=== PATIENT | male | born 1955 | race Caucasian/White ===

== ENCOUNTER 2017-01-24 18:53 | Inpatient (IN) ==
--- NOTE | 2017-01-24 19:07 | Emergency Department Note ---
Disposition Clinical Impression: Chest pain Qualifiers: Chest pain type: unspecified Qualified Code(s): R07.9 - Chest pain, unspecified Disposition: Admitted As Inpatient Condition: Good [facility]: [facility]Primary Care Provider[facility] - Forms: ED Satisfaction Letter Chest Pain HPI - General Chief Complaint: ED Chest Pain Stated Complaint: CP/[place] Time Seen by Provider: 01/24/17 19:02 Source: patient Mode of arrival: EMS Limitations: no limitations Vital Signs Reviewed: Yes Nursing Notes Reviewed: Yes - History of Present Illness HPI Narrative: 61-year-old male prior history of NC, CABG, hyperlipidemia, tobacco abuse who presents to the ER via EMS with a chief complaint of chest pain. Patient reports that he went to the [facility] today after chest pain that started around 1 PM unprovoked. He describes left-sided sharp chest pain as well as associated lightheadedness and nausea. He actually states that he has had symptoms intermittently for the last month. He was prompted to be seen during this time but he elected to forego evaluation. He states he last had a cardiac workup roughly 4 years ago. He takes aspirin daily. No history of DVT or PE. Patient was given 324 of aspirin prior to arrival. He presents to the ER chest pain free and otherwise asymptomatic. Pt complaint: chest pain Onset (ago): hour(s) Duration: intermittent Onset: during rest Pain Location: left chest Severity: moderate Quality: sharp Pain Radiation: none Improves with: nothing Worsens with: nothing Associated symptoms: Reports: nausea, dyspnea. Denies: vomiting, diaphoresis, syncope Treatments prior to arrival chest pain: aspirin - Related Data On Oral Contraceptives: No Home Medications Medication Instructions Recorded Confirmed Aspirin Enteric Coated [Aspirin EC] 162 mg PO BID 01/24/17 01/24/17 Carvedilol [Coreg] 6.25 mg PO BIDWM 01/24/17 01/24/17 Lisinopril [Zestril] 10 mg PO QPM 01/24/17 01/24/17 Allergies Allergy/AdvReac Type Severity Reaction Status Date / Time No Known Allergies Allergy Verified 01/24/17 18:54 All systems ED: reviewed and negative except as stated. Constitutional: Denies: fever Cardiovascular: Reports: chest pain. Denies: palpitations, dyspnea on exertion Respiratory: Denies: cough, dyspnea Gastrointestinal: Reports: nausea. Denies: abdominal pain, vomiting, diarrhea Musculoskeletal: Denies: back pain, neck pain Chest Pain PMH - Past Medical History Medical history: Reports: hyperlipidemia, myocardial infarction Surgical history: Reports: coronary bypass (CABG) - Social History Smoking Status: Current every day smoker Physical Exam - General Limitations: no limitations General appearance: alert, in no apparent distress - Head Head exam: atraumatic, normocephalic, normal inspection - Eye Eye exam: Present: normal appearance, EOMI - ENT ENT exam: normal exam - Neck Neck exam: Present: normal inspection, full ROM - Chest Chest inspection: Present: normal inspection, symmetric chest wall rise - Respiratory Respiratory exam: Present: normal lung sounds bilaterally - Cardiovascular Cardiovascular exam: Present: regular rate, normal rhythm, normal heart sounds - Abdominal Exam Abdominal exam: Present: soft, Non-Tender. Absent: tenderness - Extremities Exam Extremities exam: Present: normal inspection, full ROM - Expanded Upper Extremity Exam Shoulder exam: Present: normal inspection, full ROM Arm exam: Present: normal inspection, full ROM Elbow exam: Present: normal inspection, full ROM Forearm/Wrist exam: Present: normal inspection, full ROM Hand exam: Present: normal inspection, full ROM Vascular exam: Normal: radial pulse - Expanded Lower Extremity Exam Hip/Pelvis exam: Present: normal inspection, full ROM Upper leg exam: Present: normal inspection, full ROM Knee exam: Present: normal inspection, full ROM Lower leg exam: Present: normal inspection, full ROM Ankle exam: Present: normal inspection, full ROM Foot/toe exam: Present: normal inspection, full ROM Neurovascular/Tendon exam: Absent: motor deficit, sensory deficit - Neurological Exam Neurological exam: Present: alert, other (GCS 15, Nonfocal neurologic exam) - Psychiatric Psychiatric exam: Present: normal affect, normal mood - Skin Skin exam: Present: warm, dry, intact, normal color Course Course Narrative: Patient seen and examined. Vital signs reviewed. He is currently asymptomatic. We will obtain an EKG, chest x-ray as well as labs including troponin and BNP. Patient received aspirin prior to arrival. He is in agreement with staying in the hospital for further evaluation. Vital Signs Temperature 97.8 F 01/24/17 18:57 Pulse Rate 65 01/24/17 18:57 Respiratory Rate 18 01/24/17 18:57 Blood Pressure 170/108 01/24/17 18:57 O2 Sat by Pulse Oximetry 99 01/24/17 18:57 Temperature 97.8 F 01/24/17 18:57 Pulse Rate 65 01/24/17 18:57 Respiratory Rate 18 01/24/17 18:57 Blood Pressure 170/108 01/24/17 18:57 O2 Sat by Pulse Oximetry 99 01/24/17 18:57 Oxygen Delivery Oxygen Delivery Room Air Chest Pain - MDM Narrative Medical decision making narrative: 61-year-old male presents to the ER due to chest pain. Symptoms had resolved prior to arrival. Has been having intermittent pain and dizziness for the last month. Prior history of CABG and NC. No recent cardiac workup. EKG is nonischemic. Chest x-ray unremarkable. Troponin negative at first draw. Patient given aspirin prior to arrival. Admitted to the hospitalist service. - Medical Records Medical records reviewed: Yes I reviewed the patient's medical records. - Lab Data Lab results reviewed: Yes I reviewed the patient's lab results. Result diagrams: 01/24/17 19:25 01/24/17 19:25 Lab Results 01/24/17 01/24/17 01/24/17 Range/Units 19:25 19:25 19:25 WBC 10.1 (4.3-11.1) K/mcL RBC 5.03 (4.19-5.50) M/mcL Hgb 15.2 (12.9-16.9) g/dL Hct 47.3 (37.5-50.1) % MCV 94.0 (83.0-100.0) fL MCH 30.2 (28.0-33.3) pg MCHC 32.1 (31.6-35.5) g/dL RDW 13.3 (11.5-14.5) % Plt Count 269 (140-400) K/mcL MPV 9.0 L (9.4-12.4) fL Immature Gran % 0.3 (0-4) % Seg Neutrophils % 60.5 % Lymphocytes % 31.3 % Monocytes % 6.1 % Eosinophils % 1.6 % Basophils % 0.2 % Neutrophils # 6.1 (1.6-8.9) K/mcL Lymphocytes # 3.2 (0.6-4.6) K/mcL Monocytes # 0.6 (0.0-1.3) K/mcL Eosinophils # 0.2 (0.0-0.6) K/mcL Basophils # 0.0 (0.0-0.2) K/mcL Sodium 143 (136-145) mEq/L Potassium 4.8 H (3.5-4.5) mEq/L Chloride 106 (98-109) mEq/L Carbon Dioxide 29 (19-29) mEq/L BUN 11 (8-26) mg/dL Creatinine 0.88 (0.72-1.25) mg/dL Est GFR ( Amer) > 60 (> 60) Est GFR (Non-Af Amer) > 60 (> 60) BUN/Creatinine Ratio 13 (6-26) Glucose 88 (70-99) mg/dL Calculated Osmolality 295 (280-300) Calcium 9.7 (8.6-10.8) mg/dL Troponin I (0-0.03) ng/mL B-Natriuretic Peptide 136 H (0-100) pg/mL 01/24/17 Range/Units 19:25 WBC (4.3-11.1) K/mcL RBC (4.19-5.50) M/mcL Hgb (12.9-16.9) g/dL Hct (37.5-50.1) % MCV (83.0-100.0) fL MCH (28.0-33.3) pg MCHC (31.6-35.5) g/dL RDW (11.5-14.5) % Plt Count (140-400) K/mcL MPV (9.4-12.4) fL Immature Gran % (0-4) % Seg Neutrophils % % Lymphocytes % % Monocytes % % Eosinophils % % Basophils % % Neutrophils # (1.6-8.9) K/mcL Lymphocytes # (0.6-4.6) K/mcL Monocytes # (0.0-1.3) K/mcL Eosinophils # (0.0-0.6) K/mcL Basophils # (0.0-0.2) K/mcL Sodium (136-145) mEq/L Potassium (3.5-4.5) mEq/L Chloride (98-109) mEq/L Carbon Dioxide (19-29) mEq/L BUN (8-26) mg/dL Creatinine (0.72-1.25) mg/dL Est GFR ( Amer) (> 60) Est GFR (Non-Af Amer) (> 60) BUN/Creatinine Ratio (6-26) Glucose (70-99) mg/dL Calculated Osmolality (280-300) Calcium (8.6-10.8) mg/dL Troponin I 0.01 (0-0.03) ng/mL B-Natriuretic Peptide (0-100) pg/mL - Radiology Data Radiology results reviewed: Yes I reviewed the patient's radiology results. Chest X-Ray 01/24/17 19:05 IMPRESSION: No evidence of acute disease. D/ / Jose Escamilla MD / Jose Escamilla MD Interpreting Provider: Jose Escamilla MD - EKG Data EKG attestation: Yes I reviewed and interpreted this EKG. EKG results narrative: EKG demonstrates sinus bradycardia with a rate of 54 bpm. Normal axis. Prolonged QRS duration of 135. Other intervals normal. T-wave inversions in lead 3. Nonspecific ST-T wave changes in the lateral leads. No gross ST elevations or depressions. No acute ischemic findings. Heart Score - Score History: Moderately Suspicious EKG: Normal Age: 45-65 Risk Factors: Equal/Greater than 3 risk factor or history of atherosclerotic disease Troponin: Less than normal limit HEART Score Total: 4 S.B.A.R. - S.B.A.R. Situation: Demographics, MOA Background: Presenting Complaint, Relevant PMH, Meds, & Allergies Assessment: Vital Signs, Course and respsone to treatment, Exam Concerns, Patient/Family Expectation, Pertinant Lab Results, Outstanding Labs Recommendation: Barrier(s) to disposition, Recommendation based on pending studies, treatments, or consults S.B.A.R. Report Given to: Dr. Alfaro [email or web address].Maico Repor Time: 20:22 Attestation Statement - Attestation Attestation: I personally interviewed and examined this patient and my medical decision- making was reviewed with the Resident Physician, Dr. Field. I agree with the documented findings, disposition and treatment plan as described except to the extent set forth below. Patient is a 61-year-old white male who presents to the emergency department sent from the [place] for evaluation of chest pain. Patient had a prior NC with CABG apparently 4 years ago, hyperlipidemia, high cholesterol and hypertension. Patient states that about the past month he has been having intermittent episodes of orthostatic hypotension with lightheadedness. Patient has not fallen, denies any syncopal episodes but states that these are becoming more frequent and more severe. Today around noon he was sitting in a chair at rest and began having sharp left-sided chest discomfort which lasted for approximately 30 minutes. Patient had no shortness of breath with this no diaphoresis no nausea or vomiting no radiation of pain into his shoulder neck or jaw no radiation into the back. He was not having any abdominal pain or back pain at the time. Patient states he takes 2 baby aspirin in the morning and 2 at night he did take his morning aspirin and then was given aspirin in route to the ED today. Patient currently is resting comfortably and is asymptomatic he denies any chest pain pressure or heaviness at this time no symptoms but is concerned because neither very similar to symptoms he had when he required emergent CABG 4 years ago. Patient has not followed up with a nutrition services aide since his surgery. I agree with patient's physical exam findings as documented. Patient was on a cardiac cath rn continuous pulse ox EKG was obtained which was a sinus rhythm with no acute ischemic changes and this was compared to his prior EKG and is unchanged. Abs were drawn and sent a portal chest x-ray was obtained. Patient's labs and x -ray are unremarkable. Due to his significant history and concerning symptoms we feel he would benefit from admission and cardiology consult. Patient is pain -free at this time will admit the patient and discussed with the hospitalist for further evaluation and management. Patient is in agreement with this plan.
[2017-01-24 19:32] LABS: Basophils % 0.2 %; Eosinophils # 0.2 K/mcL (0.0-0.6); Eosinophils % 1.6 %; Hematocrit 47.3 % (37.5-50.1); Hemoglobin 15.2 g/dL (12.9-16.9); Immature Granulocytes % 0.3 % (0-4); Lymphocytes # 3.2 K/mcL (0.6-4.6); Lymphocytes % 31.3 %; Mean Corpuscular HGB Conc 32.1 g/dL (31.6-35.5); Mean Corpuscular Hemoglobin 30.2 pg (28.0-33.3); Monocytes # 0.6 K/mcL (0.0-1.3); Monocytes % 6.1 %; Neutrophils # 6.1 K/mcL (1.6-8.9); Platelet Count 269 K/mcL (140-400); Red Blood Count 5.03 M/mcL (4.19-5.50); Red Cell Distribution Width 13.3 % (11.5-14.5); Segmented Neutrophils % 60.5 %
[2017-01-24 19:45] LABS: BUN/Creatinine Ratio 13 (6-26); Blood Urea Nitrogen 11 mg/dL (8-26); Calcium 9.7 mg/dL (8.6-10.8); Carbon Dioxide 29 mEq/L (19-29); Chloride 106 mEq/L (98-109); Glucose 88 mg/dL (70-99); Osmolality,Calculated 295 (280-300); Potassium 4.8 mEq/L (3.5-4.5); Sodium 143 mEq/L (136-145); eGFR For African Americans > 60 (> 60); eGFR For Non-African Americans > 60 (> 60)
[2017-01-24] MEDS ORDERED: Acetaminophen 325 MG TABLET PO PRN (21:38)
[2017-01-24] MEDS ORDERED: Naloxone 0.4 MG/ML INJ IVP PRN (21:38)
--- NOTE | 2017-01-24 22:06 | Internal Med History&Physical ---
<Vesna Barraza M - Last Filed: 01/24/17 22:08> Date of Encounter: 01/24/17 Time of Encounter: 22:03 Assessment and Plan (1) Chest pain Current visit: Yes Status: Acute Patient presents with intermittent chest pain over the last several months. He has history of CAD and continues to smoke. EKG showed sinus bradycardia with no ischemic changes. Initial troponin negative at 0.01. 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 Serial troponins echocardiogram and stress test Hold morning coreg for stress test. Qualifiers: Chest pain type: precordial pain Qualified Code(s): R07.2 - Precordial pain (2) Near syncope Current visit: Yes Status: Acute Patient reports occasional episodes of near syncope over the last several months. He reports this happens whether he is at rest or active, though it is worse with activity. He has never lost consciousness. He does report that when he had his IN several years ago, his main symptom was syncope. EKG showed sinus bradycardia with HR 54, no acute ischemic changes. Troponin negative at 0.01. 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 (3) CAD (coronary artery disease) Current visit: Yes Status: Acute Patient with history of CAD s/p 2-vessel CABG. He has not had any cardiac work up since his surgery several years ago. He is having intermittent chest pain and near syncope and is being evaluated for that today. Continue aspirin, beta bharti and rambo inhibitor. Qualifiers: Coronary Disease-Associated Artery/Lesion type: [place] artery [place] vs. transplanted heart: [place] heart Associated angina: angina presence unspecified Qualified Code(s): I25.10 - Atherosclerotic heart disease of [place] coronary artery without angina pectoris (4) Smoker Current visit: Yes Status: Acute Patient continues to smoke 1-1.5 PPD despite CAD. Discussed smoking cessation and advised him to quit. Smoking cessation education ordered. (5) DVT prophylaxis Current visit: Yes Status: Acute anti-embolic stockings Lovenox daily Internal Medicine - H&P: HPI Chief complaint: chest pain Admitted From: Emergency Dept Plans for Post Hospital Care: Home History of present illness: Mr. Thompson is a 61 year old male with hypertension, hyperlipidemia, coronary artery disease status post 2 vessel CABG presents with complaints of chest pain and lightheadedness. Patient reports for the last several months has had intermittent lightheadedness, feeling like he is nearly going to pass out, but he does not. He also reports intermittent chest pain. This comes on suddenly, and does not seem to correspond with activity or rest. He reports his lightheadedness is worse with activity. Chest pain is on the left side of his chest, he describes it as an ache, he states it usually lasts minutes to several hours and goes away. He also reports left arm pain and tingling, which he originally attributed to throwing his shoulder out. This pain is constant, not relieved by ibuprofen taken at home. He reports occasional nausea, not associated with this chest pain, which he attributes to indigestion. He denies headache, palpitations, shortness of breath, abdominal pain or diarrhea. He denies any fever, chills or sweats. Evaluation in the emergency department included EKG which showed sinus bradycardia with heart rate of 54, no acute ischemic changes. Troponin was negative at 0.01. BNP was 136. Chest x-ray showed no evidence of acute disease. Other labs are grossly normal. On exam, patient alert and oriented, in no acute distress. Heart had regular rhythm with bradycardic rate heart rate in the 50s. Lungs are clear bilaterally to auscultation. Peripheral pulses intact, no peripheral edema. Past Med Surg Social Fam HX - Past Medical History Medical history: coronary artery disease, hyperlipidemia, hypertension, myocardial infarction Psychiatric history: no psych history - Past Surgical History Surgical History: coronary bypass (CABG) - Social History Smoking Status: Current every day smoker (55 year pack history) Packs per day: 1-1.5 Smokeless Tobacco Status: No Alcohol use: none Drug use: none - Family History Mother Living Status: Age at : 72 Cause of : lung CA Hx Family Cardiac Disorders: Yes Hx Family Cancer: Yes Internal Medicine - H&P: Meds Aspirin Enteric Coated [Aspirin EC] 162 mg PO BID 01/24/17 [History] Carvedilol [Coreg] 6.25 mg PO BIDWM 01/24/17 [History] Lisinopril [Zestril] 10 mg PO QPM 01/24/17 [History] 3 Allergy/AdvReac Type Severity Reaction Status Date / Time No Known Allergies Allergy Verified 01/24/17 18:54 All Systems PM: A 10-system review of systems was performed and is negative for pertinent findings except as documented above in the HPI. - Constitutional Constitutional: no chills, no fever(s), no night sweats - EENT Eyes: no change in vision, no discharge, no pain, no photophobia Ears: no ear discharge, no ear pain, no tinnitus Nose, mouth and throat: no dysphagia, no nasal discharge, no neck pain, no sore throat - Cardiovascular Cardiovascular ROS IM: chest pain, lightheadedness, no diaphoresis, no dyspnea, no palpitations, no syncope - Respiratory Respiratory: no cough, no dyspnea, no wheezing, no excessive phlegm production - Gastrointestinal Gastrointestinal: no abdominal pain, no diarrhea, no hematemesis, no hematochezia, no melena, no nausea, no vomiting - Musculoskeletal Musculoskeletal ROS IM: no numbness, no tingling Additional comments: left arm pain - Integumentary Integumentary IM: no rash, no unusual bruising - Neurological Neurological ROS: no confusion, no convulsions, no focal weakness, no numbness, no tingling, no tremor(s) - Hematologic/Lymphatic Hematologic/Lymphatic: no easy bruising - Constitutional Vitals: Temp Pulse Resp BP Pulse Ox 98.2 F 51 16 147/92 97 01/24/17 21:16 01/24/17 21:16 01/24/17 21:16 01/24/17 21:16 01/24/17 21:16 General appearance: Present: A&O X 3, pleasant, no acute distress - Head Head exam: Present: atraumatic, normocephalic - Eye Eye exam: Present: PERRL, conjuntiva pink, sclera anicteric Pupils: Present: PERRL - Neck Neck exam general surgery: Present: supple, trachea midline. Absent: lymphadenopathy - Respiratory Respiratory exam: Present: CTAB. Absent: accessory muscle use, rales, rhonchi, wheezes - Cardiovascular Cardiovascular exam: Present: bradycardia, RRR, +S1, +S2. Absent: diastolic murmur, gallop, rubs, systolic murmur - GI/Abdominal GI/Abdominal exam: Present: normal bowel sounds, soft, no peritoneal signs. Absent: distended, tenderness - Extremities Exam Extremities exam: Present: warm, radial pulses palpable and symmetrical. Absent : calf tenderness, cyanotic, pedal edema - Neurological Exam Neurological exam: Present: CN II-XII intact, oriented X3, no focal deficits. Absent: facial droop, speech deficit - Skin Skin exam: Present: dry, intact Internal Med - H&P Results - Labs CBC & Chem 7: 01/24/17 19:25 01/24/17 19:25 Labs: All Lab Results (24 Hours) 01/24/17 01/24/17 01/24/17 Range/Units 19:25 19:25 19:25 WBC 10.1 (4.3-11.1) K/mcL RBC 5.03 (4.19-5.50) M/mcL Hgb 15.2 (12.9-16.9) g/dL Hct 47.3 (37.5-50.1) % MCV 94.0 (83.0-100.0) fL MCH 30.2 (28.0-33.3) pg MCHC 32.1 (31.6-35.5) g/dL RDW 13.3 (11.5-14.5) % Plt Count 269 (140-400) K/mcL MPV 9.0 L (9.4-12.4) fL Immature Gran % 0.3 (0-4) % Seg Neutrophils % 60.5 % Lymphocytes % 31.3 % Monocytes % 6.1 % Eosinophils % 1.6 % Basophils % 0.2 % Neutrophils # 6.1 (1.6-8.9) K/mcL Lymphocytes # 3.2 (0.6-4.6) K/mcL Monocytes # 0.6 (0.0-1.3) K/mcL Eosinophils # 0.2 (0.0-0.6) K/mcL Basophils # 0.0 (0.0-0.2) K/mcL Sodium 143 (136-145) mEq/L Potassium 4.8 H (3.5-4.5) mEq/L Chloride 106 (98-109) mEq/L Carbon Dioxide 29 (19-29) mEq/L BUN 11 (8-26) mg/dL Creatinine 0.88 (0.72-1.25) mg/dL Est GFR ( Amer) > 60 (> 60) Est GFR (Non-Af Amer) > 60 (> 60) BUN/Creatinine Ratio 13 (6-26) Glucose 88 (70-99) mg/dL Calculated Osmolality 295 (280-300) Calcium 9.7 (8.6-10.8) mg/dL Troponin I (0-0.03) ng/mL B-Natriuretic Peptide 136 H (0-100) pg/mL 01/24/17 Range/Units 19:25 WBC (4.3-11.1) K/mcL RBC (4.19-5.50) M/mcL Hgb (12.9-16.9) g/dL Hct (37.5-50.1) % MCV (83.0-100.0) fL MCH (28.0-33.3) pg MCHC (31.6-35.5) g/dL RDW (11.5-14.5) % Plt Count (140-400) K/mcL MPV (9.4-12.4) fL Immature Gran % (0-4) % Seg Neutrophils % % Lymphocytes % % Monocytes % % Eosinophils % % Basophils % % Neutrophils # (1.6-8.9) K/mcL Lymphocytes # (0.6-4.6) K/mcL Monocytes # (0.0-1.3) K/mcL Eosinophils # (0.0-0.6) K/mcL Basophils # (0.0-0.2) K/mcL Sodium (136-145) mEq/L Potassium (3.5-4.5) mEq/L Chloride (98-109) mEq/L Carbon Dioxide (19-29) mEq/L BUN (8-26) mg/dL Creatinine (0.72-1.25) mg/dL Est GFR ( Amer) (> 60) Est GFR (Non-Af Amer) (> 60) BUN/Creatinine Ratio (6-26) Glucose (70-99) mg/dL Calculated Osmolality (280-300) Calcium (8.6-10.8) mg/dL Troponin I 0.01 (0-0.03) ng/mL B-Natriuretic Peptide (0-100) pg/mL - Diagnostic Studies Chest x-ray Additional comments: Chest X-Ray 01/24/17 19:05 IMPRESSION: No evidence of acute disease. D/ / Jose Escamilla MD / Jose Escamilla MD Interpreting Provider: Jose Escamilla MD <Cary Alfaro - Last Filed: 01/25/17 05:07> Date of Encounter: 01/25/17 Internal Medicine - H&P: HPI History of present illness: Mr. Thompson is a 61 year old male All Systems PM: A 10-system review of systems was performed and is negative for pertinent findings except as documented above in the HPI. - Constitutional Vitals: Temp Pulse Resp BP Pulse Ox 98.1 F 52 16 110/75 98 01/25/17 04:25 01/25/17 04:25 01/25/17 04:25 01/25/17 04:25 01/25/17 04:25 Internal Med - H&P Results - Labs CBC & Chem 7: 01/25/17 01:30 01/25/17 01:30 Labs: Short CBC 01/25/17 Range/Units 01:30 WBC 10.6 (4.3-11.1) K/mcL Hgb 14.5 (12.9-16.9) g/dL Hct 43.7 (37.5-50.1) % Plt Count 247 (140-400) K/mcL Neutrophils # 6.8 (1.6-8.9) K/mcL BMP 01/25/17 01:30 Sodium 141 Potassium 4.0 Chloride 108 Carbon Dioxide 28 BUN 14 Creatinine 0.91 Glucose 88 Calcium 9.3 Cardiac Enzymes 01/25/17 Range/Units 01:30 Troponin I 0.02 (0-0.03) ng/mL - Attending Attestation I have seen and examined pt independently. I have discussed with B[employer]LE [employer] Ms. Barraza regarding the management plan. I have reviewed and agree with the documentation. Pt admitted for chest pain. Hx of CAD s/p CABG. Need to r/o ACS. Will cont cardiac monitoring. Track 3 sets of troponin. Echo and stress test.
[2017-01-25 01:45] LABS: Basophils % 0.2 %; Eosinophils # 0.2 K/mcL (0.0-0.6); Eosinophils % 1.6 %; Hematocrit 43.7 % (37.5-50.1); Hemoglobin 14.5 g/dL (12.9-16.9); Immature Granulocytes % 0.2 % (0-4); Lymphocytes # 2.9 K/mcL (0.6-4.6); Lymphocytes % 27.4 %; Mean Corpuscular HGB Conc 33.2 g/dL (31.6-35.5); Mean Corpuscular Volume 93.6 fL (83.0-100.0); Mean Platelet Volume 9.3 fL (9.4-12.4); Monocytes # 0.7 K/mcL (0.0-1.3); Monocytes % 6.4 %; Neutrophils # 6.8 K/mcL (1.6-8.9); Platelet Count 247 K/mcL (140-400); Red Blood Count 4.67 M/mcL (4.19-5.50); Red Cell Distribution Width 13.3 % (11.5-14.5); Segmented Neutrophils % 64.2 %
[2017-01-25 01:59] LABS: BUN/Creatinine Ratio 15 (6-26); Blood Urea Nitrogen 14 mg/dL (8-26); Calcium 9.3 mg/dL (8.6-10.8); Carbon Dioxide 28 mEq/L (19-29); Chloride 108 mEq/L (98-109); Chol/HDL Ratio 6.3 (0-4.9); Cholesterol 203 mg/dL (< 200); Glucose 88 mg/dL (70-99); HDL Cholesterol 32 mg/dL (40-59); LDL Cholesterol,Calculated 129 mg/dL (0-99); Osmolality,Calculated 292 (280-300); Sodium 141 mEq/L (136-145); Triglycerides 212 mg/dL (< 150); eGFR For African Americans > 60 (> 60); eGFR For Non-African Americans > 60 (> 60)
[2017-01-25] MEDS: *HR* Enoxaparin 40 MG/0.4 ML SYRINGE SQ SCH (05:07)
[2017-01-25] MEDS ORDERED: Regadenoson 0.4 MG/5 ML SYRINGE IVP ONE (05:49)
[2017-01-25] MEDS ORDERED: Aspirin Enteric Coated 81 MG Tablet PO SCH (09:00)
--- NOTE | 2017-01-25 10:17 | Nuclear Medicine Stress Report ---
Regadenoson Nuclear Stress Name: Candido Thompson Date of Study: 01/25/2017 Date: 1955 Ht: 72.0 in Medical Record#: [id number] Age: 61 Wt: 169.0 lb Gender: Male Order #: [id number] Location: [facility] Room: [facility] Supervising Provider: Catarino Garcia CNP Reading Physician: Wes Peralta DO, FAC, [facility] Ordering Physician: Joanne Hassan CNP Primary Care Physician: [facility] Stress Technologist: Miguel Angel Bonds, ADAM Harp Maker: Bogdan Monroe Indications: Chest Pain Impression: Pharmacologic stress ECG is non diagnostic for ischemia due to baseline ST-T changes and submaximal HR. Gated EF = 36%. The left ventricle is dilated. LVEDV = 196 mL. Large sized, moderate to severe intensity, fixed perfusion defects involving the mid to apical anterior, anteroseptal, and apex segments as well as the inferior and adjacent inferolateral/inferoseptal segments c/w a prior infarct. Minimal kelli-infarct ischemia involving the basal to mid inferoseptal segments. History: Hypertension Hypercholesteremia History of Smoking History of Coronary Artery Bypass Surgery Stress Test Summary: Stress Test Type: Pharmacologic Regadenoson 0.4mg/5ml given IV Baseline Information: Initial Heart Rate: 56 Blood Pressure: 118/74 Stress Information: Test Terminated Due to (primary): As per protocol Maximum Blood Pressure: 112/72 Maximum Heart Rate: 79 Percent Maximum Heart Rate Achieved: 49 Double Product: 8848 METS Reached: 1 Symptoms: No chest symptoms Nuclear Summary: SPECT myocardial perfusion imaging using Tc99m Sestamibi given intravenously was performed at rest and following cardiac stress testing. The resting images were obtained following initial dose of 11.7 mCi. Following stress an additional dose of 35.6 mCi was given at peak exercise or 30 seconds post regadenoson infusion. Medication Given: Time Medication Dose Units Route Findings: Stress Note * Resting ECG demonstrated normal sinus rhythm, ST-T changes. * No baseline arrhythmias were noted. * Pharmacologic stress ECG is non diagnostic for ischemia due to baseline ST-T changes and submaximal HR. * No arrhythmias were noted during stress. * Patient had no chest pain during stress. * Normal hemodynamic responses to pharmacologic stress. Study Quality * Study quality is average. Gated EF % * Gated EF = 36%. Left Ventricle * The left ventricle is dilated. * LVEDV = 196 mL. Inferior Perfusion Rest * Moderate to severe intensity defects involving mid to apical anterior, anteroseptal segments. Severe intensity defects involving the inferior and adjacent inferior lateral and inferior septal segments. Inferior Perfusion Stress * Moderate to severe intensity defects involving mid to apical anterior, anteroseptal segments. Severe intensity defects involving the inferior and adjacent inferior lateral and inferior septal segments. TID * No evidence of transient ischemic dilatation. TID ratio = 0.99. Lung Uptake * There is no evidence of increase lung uptake. Updated by Wes Peralta DO, FACScooter, MERE, JASON on 01/25/2017 10:07:47 AM electronically signed on 01/25/2017 10:10:43 AM with status of Final
--- NOTE | 2017-01-25 14:02 | Cardiology Consult Note ---
Date of Encounter: 01/25/17 Time of Encounter: 13:30 Assessment and Plan (1) Chest pain Current Visit: Yes Status: Acute Per cardiology: -Reports intermittent chest pain for the past several months. -Reports pain can occur at rest and with excertion. -Denies current chest pain. -ECG with sinus bradycardia, incomplete bundle branch block, t wave inverisions noted. Unknown baseline ECG. -On asa, statin, beta bharti. Beta bharti currently on hold due to bradycardia. -Troponins negative x3. -Echo with LVEF 35-40%, severely dilated left ventricle, mild diastolic dysfunction, moderately dilated left atrium, no significant valvular dysfunction , mid inferior, basal inferior, apical septal, mid inferior septal, and basal inferior septal ryan were akinetic, all other ryan hypokinetic. -Nuclear stress with Gated EF 36%, left ventricle is dilated, large sized moderate to severe intensity, fixed perfusion defects involving mid to apical anterior, anteroseptal, and apex segments as well as the inferior adjacent inferolateral/inferoseptal segments consistent with prior infarct. Minimal per- infarct ischemia involving basal to mid inferoseptal segments. -Per discussion with patient, findings on stress and echo new. Will obtain old records to compare. -PLan for LHC in am. Risks versus benefits of LHC explained to patient. Patient states understanding and agreeable for LHC. -Discussed medication complaints after LHC, if needs stent placement. Patient states he would be compliant with medications and would be compliant with cardiology follow up. -Will make NPO after midnight. -Further recommendations pending LHC. Qualifiers: Chest pain type: unspecified Qualified Code(s): R07.9 - Chest pain, unspecified (2) CAD (coronary artery disease) Current Visit: Yes Status: Chronic Per cardiology: -Known CAD with reported CABG x2 2010 at [facility]. -Reports atypical chest pain. -On asa, statin, beta bharti. -Reports is intermittnetly compliant with medications. -Echo and stress as above. -Plan for LHC in am. Qualifiers: Coronary Disease-Associated Artery/Lesion type: [place] artery [place] vs. transplanted heart: [place] heart Associated angina: angina presence unspecified Qualified Code(s): I25.10 - Atherosclerotic heart disease of [place] coronary artery without angina pectoris (3) Sinus bradycardia Current Visit: Yes Status: Acute Per cardiology: -Sinus bradycardia noted. -Unknown baseline ECG or HR. -Beta bharti currently on hold -Had dizziness on presentation, however not currently having dizziness. -Will continue to monitor. (4) Cardiomyopathy Current Visit: Yes Status: Acute Per cardiology: -LVEF 35-40%, unknown chronicity. -ON rambo inhibitor and beta blcoker (currently being held for bradycardia). -Euvolemic on exam. -Plan for [facility] in am. -Will obtain previous cardiac records. Qualifiers: Cardiomyopathy type: unspecified Qualified Code(s): I42.9 - Cardiomyopathy , unspecified (5) Hyperlipemia Current Visit: Yes Status: Acute Per cardiology: -Known hyperlipidemia. -ON statin. -Will change to atorvastatin. -Will check AST and ALT. Qualifiers: Hyperlipidemia type: mixed hyperlipidemia Qualified Code(s): E78.2 - Mixed hyperlipidemia (6) Tobacco abuse Current Visit: Yes Status: Acute Per cardiology: -Known tobacco abuse of 1-1.5 ppd for >40 years. -SMoking cessation education given to patient. Patietn states he does not plan on quitting. Discussion w patient/family: The assessment and plan as outlined above was discussed with the patient who expressed understanding and agreement. All questions were answered. Thank you for involving us in the care of your patient. Please call with any questions. Discussed and reviewed with . History of Present Illness Consult date: 01/25/17 Requesting physician: Meagan Cruz Consult reason: abnormal stress, EF 36%, chest pain Chief complaint: chest pain, dizziness History of present illness: Mr. Thompson is a 61 year old male with a relevant past medical history of HTN, hyperlipidemia, CAD s/p CABG x2 2010, tobacco abuse. Patient presented to [facility] for complaints of dizziness and left sided chest pain. Patient states dizziness is a new symptom for him. Patient states he has ahd intermittent chest pain for months. Patient states chest pain can occur at rest and with excertion. Patient denies aggravating or alleviating factors. Patient states pain radiates to left shoulder. Patient denies current chest pain. Patient denies shortness of breath or fatigue. Past Med Surg Social Fam HX - Past Medical History Attestation: Yes The following information was validated with the patient. Source: patient Medical history: coronary artery disease, hyperlipidemia, hypertension, myocardial infarction Psychiatric history: no psych history - Past Surgical History Surgical History: coronary bypass (CABG) - Social History Smoking Status: Current every day smoker (55 year pack history) Packs per day: 1-1.5 Smokeless Tobacco Status: No Alcohol use: none Drug use: none - Family History Mother Living Status: Age at : 72 Cause of : lung CA Hx Family Cardiac Disorders: Yes Hx Family Cancer: Yes Medications and Allergies Aspirin Enteric Coated [Aspirin EC] 162 mg PO BID 01/24/17 [History] Carvedilol [Coreg] 6.25 mg PO BIDWM 01/24/17 [History] Lisinopril [Zestril] 10 mg PO QPM 01/24/17 [History] 3 Allergy/AdvReac Type Severity Reaction Status Date / Time No Known Allergies Allergy Verified 01/24/17 18:54 All Systems Review: A 10-system review of systems was performed and is negative for pertinent findings except as documented above in the HPI. - Cardiovascular Cardiovascular: as per HPI, chest pain at rest, chest pain with exertion - Neurological Neurological: dizziness Physical Examination Vital Signs, Last 4 Hours Temp Pulse Resp BP Pulse Ox 01/25/17 11:31 98.3 F 50 16 134/84 97 General: Conversant, No Apparent Distress HEENT: Atraumatic, Normocephaly, Mucus Membranes Moist Neck: No JVD, Normal carotid pulses Cardiac: Reg Rate and Rhythm, Normal S1 and S2, No Murmur Lungs: Normal Breath Sounds, No Wheeze, Rales, Rhonchi Neuro: Alert and responsive, No focal deficits noted Abdomen: Soft, Non-Tender Skin: No rashes noted on visualized skin Musculoskeletal: No Chest Wall Tenderness Extremities: No Clubbing, No Cyanosis, No Edema, Normal Pulses Results 01/25/17 01:30 01/25/17 01:30 Lab Results Impressions Chest X-Ray 01/24/17 19:05 IMPRESSION: No evidence of acute disease. D/ / Jose Escamilla MD / oJse Escamilla MD Interpreting Provider: Jose Escamilla MD Active Medications Acetaminophen (Tylenol) 650 mg PO Q6HR PRN PRN Reason: Mild Pain (1-3) Stop: 07/26/17 21:39 Last Admin: 01/25/17 04:37 Dose: 650 mg Aspirin (Aspirin Ec) 81 mg PO DAILY [facility] Stop: 07/28/17 09:01 Atorvastatin Calcium (Lipitor) 40 mg PO HS [facility] Stop: 07/27/17 21:01 Carvedilol (Coreg) 6.25 mg PO BIDWM [facility] PRN Reason: Protocol Stop: 07/27/17 08:01 Docusate Sodium (Colace) 100 mg PO BID PRN PRN Reason: Constipation Stop: 07/26/17 21:39 Enoxaparin Sodium (Lovenox) 40 mg SQ 0600 ROSE PRN Reason: Protocol Stop: 07/27/17 06:01 Last Admin: 01/25/17 05:07 Dose: Not Given Lisinopril (Zestril) 10 mg PO QPM [facility] PRN Reason: Protocol Stop: 07/26/17 21:46 Last Admin: 01/24/17 22:47 Dose: 10 mg Naloxone HCl (Narcan) 0.4 mg IVP Q2MIN PRN PRN Reason: Opioid Reversal Stop: 07/26/17 21:39 Laboratory Tests 01/24/17 01/25/17 01/25/17 19:25 01:30 01:30 Hgb 14.5 Creatinine Troponin I 0.01 0.02 Triglycerides Cholesterol LDL Cholesterol, Calc HDL Cholesterol 01/25/17 01/25/17 01:30 07:12 Hgb Creatinine 0.91 Troponin I 0.02 Triglycerides 212 H Cholesterol 203 H LDL Cholesterol, Calc 129 H HDL Cholesterol 32 L - Imaging and Cardiology Chest Xray: report reviewed Stress Test: report reviewed Echo: report reviewed - EKG Interpretation EKG results cardiology: personally reviewed (ECG with Sinus bradycardia, HR 54, T wave inversion noted in leads II, III, aVf, incomplete bundle branch block noted.), other (Telemetry reviewed with average HR 52, sinus bradycardia. PVCs, couplets, triplets, and PACs noted.) Consult Discharge Plan - Plan [facility]errals: [facility] [Primary Care Provider] -
[2017-01-25 14:10] LABS: Alanine Aminotransferase 12 Units/L (0-55); Aspartate Amino Transferase 11 Units/L (5-34)
--- NOTE | 2017-01-25 17:05 | Electrocardiograph Report ---
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
--- NOTE | 2017-01-25 20:01 | Internal Med Progress Note ---
Date of Encounter: 01/25/17 Time of Encounter: 13:30 - Assessment and plan (1) Chest pain Current Visit: Yes Status: Acute Assessment and plan: Patient denies chest pain. He does report history of chest pain over the last month, dizziness for last 2 months. History of coronary artery disease. Echocardiogram showed LVEF 35-40% with severely dilated LV, mild LVEDD moderately dilated left atrium, no significant valvular dysfunction. Stress test showed gated EF of 36%, left ventricle dilated, minimal. Infarct ischemia involving the basal to mid inferior septal segments. Cardiology was consulted they have seen him. Patient will have [facility] tomorrow. Cardiology is on board Continue to monitor vital signs and labs [facility] tomorrow Continue telemetry. Qualifiers: Chest pain type: unspecified Qualified Code(s): R07.9 - Chest pain, unspecified (2) CAD (coronary artery disease) Current Visit: Yes Status: Chronic Assessment and plan: Chronic. Old records being obtained by cardiology. Continue aspirin, statin, beta bharti, Imdur. Qualifiers: Coronary Disease-Associated Artery/Lesion type: [place] artery [place] vs. transplanted heart: [place] heart Associated angina: angina presence unspecified Qualified Code(s): I25.10 - Atherosclerotic heart disease of [place] coronary artery without angina pectoris (3) DVT prophylaxis Current Visit: Yes Status: Acute Assessment and plan: Lovenox subcutaneous. (4) Hyperlipemia Current Visit: Yes Status: Acute Assessment and plan: Chronic. Continue Lipitor. Qualifiers: Hyperlipidemia type: mixed hyperlipidemia Qualified Code(s): E78.2 - Mixed hyperlipidemia (5) Tobacco abuse Current Visit: Yes Status: Acute Assessment and plan: Patient states that he is not interested in smoking cessation. Says he has to much stress in his life. Patient does appear to feed depressed I discussed starting an antidepressant, he states that is okay we also discussed the side effect of possible smoking cessation with Wellbutrin. He is agreeable. (6) Depression Current Visit: Yes Status: Acute Assessment and plan: Patient repeats throughout assessment he does not care what happens to him. He denies suicidal ideations, as well as homicidal ideations. He says he has no family left they have all . He states that he does not want to see psychiatry. We will revisit this again tomorrow. I have started him on Wellbutrin with his approval. Education was completed. Continue to monitor. Qualifiers: Depression Type: unspecified Qualified Code(s): F32.9 - Major depressive disorder, single episode, unspecified - Time Spent With Patient less than 15 minutes - Subjective Interval history: Patient was seen and assessed at 1330. He reports no chest pain during assessment, although he has had left chest pain intermittently for one month, states it is midsternal lasting 1-2 minutes. He also reports lightheadedness for 2 months. Patient states he is not interested at all in smoking cessation. Patient is depressed and states that he does not care what happens to him. I will start him on Wellbutrin, he is agreeable to trying this, not only for depression but also for smoking cessation. He states he is not sleeping well I will give him melatonin tonight. - Constitutional Vitals: Temp Pulse Resp BP Pulse Ox 98.4 F 50 16 101/66 98 01/25/17 19:42 01/25/17 19:42 01/25/17 19:42 01/25/17 19:42 01/25/17 19:42 General appearance: Present: cooperative, A&O X 3, pleasant, no acute distress, answers questions appropriately - Head Head exam: Present: atraumatic, normal inspection, normocephalic - Eye Eye exam: Present: normal appearance, PERRL, conjuntiva pink Pupils: Present: PERRL - Neck Neck exam general surgery: Present: normal inspection, supple, trachea midline. Absent: lymphadenopathy, tenderness - Respiratory Respiratory exam: Present: CTAB. Absent: accessory muscle use, decreased breath sounds, rales, rhonchi, wheezes - Cardiovascular Cardiovascular exam: Present: RRR, +S1, +S2. Absent: diastolic murmur, gallop, rubs, systolic murmur - GI/Abdominal GI/Abdominal exam: Present: normal bowel sounds, soft, no peritoneal signs. Absent: distended, hepatomegaly, tenderness - Extremities Exam Extremities exam: Present: normal inspection, warm, radial pulses palpable and symmetrical. Absent: calf tenderness, cyanotic, pedal edema - Neurological Exam Neurological exam: Present: alert, CN II-XII intact, oriented X3, no focal deficits, pronater drift. Absent: facial droop, speech deficit - Skin Skin exam: Present: dry, intact, normal color, warm Internal Medicine: Result - Labs CBC & Chem 7: 01/25/17 01:30 01/25/17 01:30 Labs: Short CBC 01/25/17 Range/Units 01:30 WBC 10.6 (4.3-11.1) K/mcL Hgb 14.5 (12.9-16.9) g/dL Hct 43.7 (37.5-50.1) % Plt Count 247 (140-400) K/mcL Neutrophils # 6.8 (1.6-8.9) K/mcL BMP 01/25/17 01:30 Sodium 141 Potassium 4.0 Chloride 108 Carbon Dioxide 28 BUN 14 Creatinine 0.91 Glucose 88 Calcium 9.3 Cardiac Enzymes 01/25/17 01/25/17 Range/Units 01:30 07:12 Troponin I 0.02 0.02 (0-0.03) ng/mL Liver Function 01/25/17 Range/Units 01:30 AST 11 (5-34) Units/L ALT 12 (0-55) Units/L Consult Discharge Plan - Plan [facility]errals: [facility] [Primary Care Provider] -
[2017-01-25] MEDS ORDERED: Melatonin 3 MG TABLET PO SCH (21:00)
[2017-01-26] MEDS: *HR* Enoxaparin 40 MG/0.4 ML SYRINGE SQ SCH (05:31)
--- NOTE | 2017-01-26 07:17 | Carotid Imaging Report ---
Carotid Duplex Patient Name:Candido Thompson Order Number:[id number] Procedure Date:01/25/2017 Date:1955ge:61 yrs Gender:Male Location:[facility] Room #: 3B38 Insurance Counsel:Jose Johnson RDCS Referring MD:Vesna Barraza CNP studio receptionist:[facility] Reading MD:Enrrique Silva MD Primary Indications:Syncope Risk Factors Yes/No Hypercholesterolemia Yes Smoking Current Yes Impressions: The bilateral carotid arteries have minimal plaque throughout. Recommendations: After imaging the patient returned to their room. Findings Carotid Duplex: Right: The right proximal common carotid artery has a PSV of 106 cm/s and a EDV of 19 cm/s. The right mid common carotid artery has a PSV of 71 cm/s and a EDV of 18 cm/s. The right distal common carotid artery has a PSV of 62 cm/s and a EDV of 14 cm/s. There is nonstenotic plaque in the right bifurcation with a PSV of 60 cm/s and a EDV of 16 cm/s. There is smooth heterogeneous plaque. There is nonstenotic plaque in the right proximal internal carotid artery with a PSV of 61 cm/s and a EDV of 18 cm/s. There is smooth heterogeneous plaque. The right mid internal carotid artery has a PSV of 78 cm/s and a EDV of 28 cm/s. The right distal internal carotid artery has a PSV of 63 cm/s and a EDV of 21 cm/s. The right eca has a PSV of 73 cm/s and a EDV of 15 cm/s. The right vertebral artery has a PSV of 41 cm/s and a EDV of 15 cm/s. Left: The left proximal common carotid artery has a PSV of 116 cm/s and a EDV of 26 cm/s. The left mid common carotid artery has a PSV of 69 cm/s and a EDV of 18 cm/s. The left distal common carotid artery has a PSV of 60 cm/s and a EDV of 19 cm/s. There is nonstenotic plaque in the left bifurcation with a PSV of 34 cm/s and a EDV of 11 cm/s. There is smooth calcified plaque. There is nonstenotic plaque in the left proximal internal carotid artery with a PSV of 67 cm/s and a EDV of 24 cm/s. There is smooth heterogeneous plaque. The left mid internal carotid artery has a PSV of 92 cm/s and a EDV of 39 cm/s. The left distal internal carotid artery has a PSV of 91 cm/s and a EDV of 33 cm/s. The left eca has a PSV of 59 cm/s and a EDV of 11 cm/s. The left vertebral artery has a PSV of 44 cm/s and a EDV of 15 cm/s. Prior Study: No prior study available for comparison. Carotid Results Right PSV EDV Assessment Proximal CCA 106 19 Normal Mid CCA 71 18 Normal Distal CCA 62 14 Normal Bifurcation 60 16 Non Stenotic Plaque Proximal ICA 61 18 Non Stenotic Plaque Mid ICA 78 28 Normal Distal ICA 63 21 Normal ECA 73 15 Normal Vertebral Artery 41 15 Normal Left PSV EDV Assessment Proximal CCA 116 26 Normal Mid CCA 69 18 Normal Distal CCA 60 19 Normal Bifurcation 34 11 Non Stenotic Plaque Proximal ICA 67 24 Non Stenotic Plaque Mid ICA 92 39 Normal Distal ICA 91 33 Normal ECA 59 11 Normal Vertebral Artery 44 15 Normal Ratio's Right ICA/CCA Ratio: 1.10 ICA/CCA Values: 78/71 Left ICA/CCA Ratio: 1.33 ICA/CCA Values: 92/69 Updated by Enrrique Silva MD on 01/26/2017 7:11:01 AM electronically signed on 01/26/2017 7:11:12 AM with status of Final
[2017-01-26] MEDS ORDERED: Aspirin Enteric Coated 81 MG Tablet PO SCH (09:00)
[2017-01-26] MEDS ORDERED: Isosorbide MONOnitrate (24 HR) 30 MG TAB.ER.24H PO SCH (09:00)
--- NOTE | 2017-01-26 11:35 | Cardiology Progress Note ---
Date of Encounter: 01/26/17 Time of Encounter: 10:45 Assessment and Plan (1) Chest pain Current Visit: Yes Status: Acute Per cardiology: -Reports intermittent chest pain for the past several months. -Reports pain can occur at rest and with excertion. -Denies current chest pain. -ECG with sinus bradycardia, incomplete bundle branch block, t wave inverisions noted. Unknown baseline ECG. -On asa, statin, beta bharti. Beta bharti currently on hold due to bradycardia. -Troponins negative x3. -Echo with LVEF 35-40%, severely dilated left ventricle, mild diastolic dysfunction, moderately dilated left atrium, no significant valvular dysfunction , mid inferior, basal inferior, apical septal, mid inferior septal, and basal inferior septal ryan were akinetic, all other ryan hypokinetic. -Nuclear stress with Gated EF 36%, left ventricle is dilated, large sized moderate to severe intensity, fixed perfusion defects involving mid to apical anterior, anteroseptal, and apex segments as well as the inferior adjacent inferolateral/inferoseptal segments consistent with prior infarct. Minimal per- infarct ischemia involving basal to mid inferoseptal segments. -Started on imdur yesterday. -Review of records shows LVEF reduced previously 11/2011 and 01/2012 after CABG. -Per discussion with and review of previous records, medical management recommended. -Will stop beta bharti due to bradycardia. -Cardiology will sign off and will follow in outpatient setting. Stressed importance of cardiology follow up. Follow up set. Qualifiers: Chest pain type: unspecified Qualified Code(s): R07.9 - Chest pain, unspecified (2) CAD (coronary artery disease) Current Visit: Yes Status: Chronic Per cardiology: -Known CAD with reported CABG x2 2010 at [place]. -Reports atypical chest pain. -On asa, statin, beta bharti, and imdur. -Reports is intermittnetly compliant with medications. -Echo and stress as above. Qualifiers: Coronary Disease-Associated Artery/Lesion type: [place] artery [place] vs. transplanted heart: [place] heart Associated angina: angina presence unspecified Qualified Code(s): I25.10 - Atherosclerotic heart disease of [place] coronary artery without angina pectoris (3) Sinus bradycardia Current Visit: Yes Status: Acute Per cardiology: -Sinus bradycardia noted. -Unknown baseline ECG or HR. -Beta bharti currently on hold -Had dizziness on presentation, however not currently having dizziness. -Will stop beta bharti. -Will continue to monitor in outpatient settign. (4) Cardiomyopathy Current Visit: Yes Status: Acute Per cardiology: -LVEF 35-40%, previous 20-25% January 2012 after CABG. -ON rambo inhibitor and beta blcoker (currently being held for bradycardia). -Euvolemic on exam. -I stressed importance of cardiology follow up for cardiomyopathy. Educated patient that he is at risk for sudden cardiac due to cardiomyopathy. -Cardiology will continue to follow. Will repeat echo in 3 months. Qualifiers: Cardiomyopathy type: unspecified Qualified Code(s): I42.9 - Cardiomyopathy , unspecified (5) Hyperlipemia Current Visit: Yes Status: Acute Per cardiology: -Known hyperlipidemia. -ON statin. -AST and ALT within normal limits. Qualifiers: Hyperlipidemia type: mixed hyperlipidemia Qualified Code(s): E78.2 - Mixed hyperlipidemia (6) Tobacco abuse Current Visit: Yes Status: Acute Per cardiology: -Known tobacco abuse of 1-1.5 ppd for >40 years. -SMoking cessation education given to patient. Patietn states he does not plan on quitting. Discussion w patient/family: The assessment and plan as outlined above was discussed with the patient who expressed understanding and agreement. All questions were answered. Thank you for involving us in the care of your patient. Please call with any questions. Discussed and reviewed with . Subjective Principal diagnosis: chest pain Interval history: Patient denies chest pain overnight. Objective Vital Signs, Last 4 Hours Temp Pulse Resp BP Pulse Ox 01/26/17 10:47 97 01/26/17 08:16 97.6 F 50 16 114/75 97 General: Conversant, No Apparent Distress HEENT: Atraumatic, Normocephaly, Mucus Membranes Moist Neck: No JVD, Normal carotid pulses Cardiac: Reg Rate and Rhythm, Normal S1 and S2, No Murmur Lungs: Normal Breath Sounds, No Wheeze, Rales, Rhonchi Neuro: Alert and responsive, No focal deficits noted Abdomen: Soft, Non-Tender Skin: No rashes noted on visualized skin Musculoskeletal: No Chest Wall Tenderness Extremities: No Clubbing, No Cyanosis, No Edema, Normal Pulses Results 01/25/17 01:30 01/25/17 01:30 Lab Results Active Medications Acetaminophen (Tylenol) 650 mg PO Q6HR PRN PRN Reason: Mild Pain (1-3) Stop: 07/26/17 21:39 Last Admin: 01/25/17 04:37 Dose: 650 mg Aspirin (Aspirin Ec) 81 mg PO DAILY [facility] Stop: 07/28/17 09:01 Last Admin: 01/26/17 10:17 Dose: 81 mg Atorvastatin Calcium (Lipitor) 40 mg PO HS [facility] Stop: 07/27/17 21:01 Last Admin: 01/25/17 21:37 Dose: 40 mg Bupropion HCl (Wellbutrin) 100 mg PO BID [facility] Stop: 07/27/17 21:01 Last Admin: 01/26/17 10:17 Dose: 100 mg Carvedilol (Coreg) 6.25 mg PO BIDWM [facility] PRN Reason: Protocol Stop: 07/27/17 08:01 Docusate Sodium (Colace) 100 mg PO BID PRN PRN Reason: Constipation Stop: 07/26/17 21:39 Enoxaparin Sodium (Lovenox) 40 mg SQ 0600 [facility] PRN Reason: Protocol Stop: 07/27/17 06:01 Last Admin: 01/26/17 05:31 Dose: Not Given Isosorbide Mononitrate (Imdur) 30 mg PO DAILY [facility] Stop: 07/28/17 09:01 Last Admin: 01/26/17 10:17 Dose: 30 mg Lisinopril (Zestril) 10 mg PO QPM [facility] PRN Reason: Protocol Stop: 07/26/17 21:46 Last Admin: 01/25/17 17:21 Dose: 10 mg Melatonin (Melatonin) 3 mg PO HS [facility] Stop: 07/27/17 21:01 Last Admin: 01/25/17 23:48 Dose: 3 mg Naloxone HCl (Narcan) 0.4 mg IVP Q2MIN PRN PRN Reason: Opioid Reversal Stop: 07/26/17 21:39 Laboratory Tests 01/24/17 01/25/17 01/25/17 19:25 01:30 01:30 Hgb 14.5 Creatinine Troponin I 0.01 0.02 01/25/17 01/25/17 01:30 07:12 Hgb Creatinine 0.91 Troponin I 0.02 - Imaging and Cardiology Chest Xray: report reviewed Stress Test: report reviewed Echo: report reviewed Cardiac cath: report reviewed - EKG Interpretation EKG results cardiology: other (Telemetry reviewed with average HR 51, sinus bradycardia. PVCs noted.) Consult Discharge Plan - Plan [facility]errals: [facility] [Primary Care Provider] -
[2017-01-26 15:43] VITALS: BP 115/54
--- NOTE | 2017-01-26 17:09 | Internal Med Progress Note ---
Date of Encounter: 01/26/17 Time of Encounter: 14:05 - Assessment and plan (1) Chest pain Current Visit: Yes Status: Acute Qualifiers: Chest pain type: unspecified Qualified Code(s): R07.9 - Chest pain, unspecified (2) CAD (coronary artery disease) Current Visit: Yes Status: Chronic Qualifiers: Coronary Disease-Associated Artery/Lesion type: [place] artery [place] vs. transplanted heart: [place] heart Associated angina: angina presence unspecified Qualified Code(s): I25.10 - Atherosclerotic heart disease of [place] coronary artery without angina pectoris (3) DVT prophylaxis Current Visit: Yes Status: Acute (4) Hyperlipemia Current Visit: Yes Status: Acute Qualifiers: Hyperlipidemia type: mixed hyperlipidemia Qualified Code(s): E78.2 - Mixed hyperlipidemia (5) Tobacco abuse Current Visit: Yes Status: Acute (6) Depression Current Visit: Yes Status: Acute Qualifiers: Depression Type: unspecified Qualified Code(s): F32.9 - Major depressive disorder, single episode, unspecified - Subjective Interval history: Patient was seen and assessed at 1405 today. Patient denies chest pain. He has been seen by cardiology and has been told that he is not allowed to work. 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 Patient still denies suicidal or homicidal. He is resigned to the fact that he is going to have to find another job. 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 - Constitutional Vitals: Temp Pulse Resp BP Pulse Ox 98.1 F 55 16 115/54 96 01/26/17 15:32 01/26/17 15:32 01/26/17 15:32 01/26/17 15:32 01/26/17 15:32 General appearance: Present: cooperative, A&O X 3, pleasant, no acute distress, answers questions appropriately Internal Medicine: Result - Labs CBC & Chem 7: 01/25/17 01:30 01/25/17 01:30 Consult Discharge Plan - Plan Referrals: [facility] [Primary Care Provider] -
--- NOTE | 2017-01-26 17:12 | Discharge Summary ---
Date of Encounter: 01/26/17 Time of Encounter: 14:05 - Discharge Diagnosis (1) Chest pain Priority: Primary Status: Acute Comments: Per cardiology: -Reports intermittent chest pain for the past several months. -Reports pain can occur at rest and with exertion. -Denies current chest pain. -ECG with sinus bradycardia, incomplete bundle branch block, t wave inverisions noted. Unknown baseline ECG. -On asa, statin, beta bharti. Beta bharti currently on hold due to bradycardia. -Troponins negative x3. -Echo with LVEF 35-40%, severely dilated left ventricle, mild diastolic dysfunction, moderately dilated left atrium, no significant valvular dysfunction , mid inferior, basal inferior, apical septal, mid inferior septal, and basal inferior septal ryan were akinetic, all other ryan hypokinetic. -Nuclear stress with Gated EF 36%, left ventricle is dilated, large sized moderate to severe intensity, fixed perfusion defects involving mid to apical anterior, anteroseptal, and apex segments as well as the inferior adjacent inferolateral/inferoseptal segments consistent with prior infarct. Minimal per- infarct ischemia involving basal to mid inferoseptal segments. -Started on imdur yesterday. -Review of records shows LVEF reduced previously 11/2011 and 01/2012 after CABG. -Will stop beta bharti due to bradycardia. Pt has denied chest pain since arrival. He has an appointment to follow up with cardiology and pt states that he will follow up. We have stressed the importance of follow up care. Qualifiers: Chest pain type: unspecified Qualified Code(s): R07.9 - Chest pain, unspecified (2) CAD (coronary artery disease) Priority: Secondary Status: Chronic Comments: Plan as above. BB has been stopped due to bradycardia. Cardiology UTILITIES AND MAINTENANCE SUPERVISOR recommends not sending pt home on BB and they will reevaluate at clinic visit. Qualifiers: Coronary Disease-Associated Artery/Lesion type: [place] artery [place] vs. transplanted heart: [place] heart Associated angina: angina presence unspecified Qualified Code(s): I25.10 - Atherosclerotic heart disease of [place] coronary artery without angina pectoris (3) DVT prophylaxis Priority: Secondary Status: Acute Comments: Lovenox SQ. (4) Hyperlipemia Priority: Secondary Status: Chronic Comments: Chronic. Continue Lipitor. Qualifiers: Hyperlipidemia type: mixed hyperlipidemia Qualified Code(s): E78.2 - Mixed hyperlipidemia (5) Tobacco abuse Priority: Secondary Status: Chronic Comments: Pt states that he has too much stress in his life and is not ready to stop smoking at this time. Education completed, pt verbalized understanding. (6) Depression Priority: Secondary Status: Acute Comments: Pt has been started on Wellbutrin. Pt denies SI or HI and states that he has no family near him for support, but does have friends. Pt states that he has been feeling upset about his work situation and states that his employer has refused to pay him. Will send him home with Rx for Wellbutrin. Qualifiers: Depression Type: unspecified Qualified Code(s): F32.9 - Major depressive disorder, single episode, unspecified - Discharge Medications Prescriptions: Atorvastatin [Lipitor] 40 mg PO HS #30 tab BuPROPion [Wellbutrin] 100 mg PO BID #30 tab Isosorbide MONOnitrate (24 HR) [Imdur] 30 mg PO DAILY #30 tab.er.24h Home Medications: Aspirin Enteric Coated [Aspirin EC] 162 mg PO BID 01/24/17 [History] Lisinopril [Zestril] 10 mg PO QPM 01/24/17 [History] Atorvastatin [Lipitor] 40 mg PO HS #30 tab 01/26/17 [Rx] BuPROPion [Wellbutrin] 100 mg PO BID #30 tab 01/26/17 [Rx] Isosorbide MONOnitrate (24 HR) [Imdur] 30 mg PO DAILY 01/26/17 [Rx] Isosorbide MONOnitrate (24 HR) [Imdur] 30 mg PO DAILY #30 tab.er.24h 01/26/17 [ Rx] Allergies/Adverse Reactions: 3 Allergy/AdvReac Type Severity Reaction Status Date / Time No Known Allergies Allergy Verified 01/24/17 18:54 Procedures/tests Complete & Pending: Procedures Performed prior 72 hours Category Date Time Status NM geraldine perf SPECT multi [NM] Routine Exams 01/24/17 21:42 Taken EV carotid duplex imaging BI Routine Y 01/25/17 22:01 Completed EV echocardiogram Routine Y 01/25/17 21:41 Completed SP pharm nuclear stress Routine Y 01/25/17 07:10 Completed Date of admission: 01/24/17 20:46 [facility]: [facility] Consults: 01/25/17 10:42 Consult to Cardiology [CONS] Routine Comment: Consulting Provider: Cardiology [place] Reason for Consult: EF 36%, abnormal stress. Echo results are pending. Time Notified: 10:42 Call Completed: Yes 01/25/17 12:08 Consult to [employer]st [CONS] Routine Reason for SW Consult: med management Discharging clinician: Meagan Cruz Anticipated date of discharge: 01/26/17 - Patient Status Disposition: Home, Self-Care Condition: Good Functional capacity at discharge: independent ambulation Overall status at discharge: patient is back to baseline - Discharge Instructions Follow Up With: [facility] [Primary Care Provider] - Additional Instructions: Follow up with [facility] and with cardiology as scheduled. Take your medications as directed and start your new medications in the morning Return to the ER as needed for any other problems or concerns or if your symptoms return. Do not return to work or drive until you are cleared by cardiology. Return to your normal activities as tolerated. Stop smoking!!! - Diet and Activity Activity: increase activity as tolerated Diet: low fat, low cholesterol Hospital course: Mr. Thompson is a 61 year old male with past medical history of hypertension, hyperlipidemia, coronary artery disease with 2 vessel CABG. He presented to the emergency department with complaints of chest pain and lightheadedness. He reports is going on for several months and has had intermittent lightheadedness , feeling like he is going to pass out, but it is not. He also remarked intermittent chest pain with sudden onset does not seem to correspond with activity or rest. He reports his lightheadedness is worse with activity. The chest pain is located on the left side, described as an ache, states it usually last minutes to hours and then goes away. He also reports left arm pain and tingling. He reports occasional nausea not associated with chest pain, no headache, palpitations, shortness breath, abdominal pain, or diarrhea. Patient states that he has not been able to get his own medications and has been taking his friend's medications since they took the exact same thing. Patient's echocardiogram showed LVEF of 35-40% with severely dilated LV, mild LVEDD, moderately dilated left atrium, no significant valvular dysfunction. Carotid Dopplers have minimal plaque throughout. Stress test showed a gated EF of 36% with a large size fixed perfusion defect involving mid to apical anterior , anteroseptal, and apex segments consistent with prior infarct, also a minimal kelli-infarct ischemia involving the basal mid inferior septal segments. Troponins were negative, EKG was sinus bradycardia, T-wave inversions, incomplete bundle branch block. He is already on aspirin, statin, and a beta bharti. Cardiology was consulted and old records were obtained from prior hospital. Patient states later that he was aware of his cardiomyopathy and reduced ejection fraction, states that he was supposed to follow-up and have a pacemaker implanted. 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 He has been started on Imdur and has had no chest pain. His beta bharti has been held secondary to bradycardia. I did speak with cardiology in the [place] who saw patient regarding sending patient home on perhaps a low-dose of beta bharti to prevent rebound hypertension or tachycardia, she states that they will follow-up with him and he already has appointment scheduled and there is no need to continue beta bharti. He will be sent home with a prescription for Imdur. He will also be sent home with a prescription for a statin, as well as Wellbutrin which was started due to patient's obvious depression. 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 Patient has multiple social issues and states that he is taking all of his prison out to help keep his mother alive prior to her , he also states that he has not filed taxes for 15 years and has a large sum due to the IRS. He states that he has to have an income and cannot work a job where taxes will be taken from his paycheck. Although he agrees that he will not drive, he makes comments to the contrary. Our pediatric social worker arranged transportation for patient to return home to [place]. His car is at the [facility] here in [place] and he will leave his car here. He instead has arranged for his transportation and agrees to not drive home. Our pediatric social worker is waiting on a reply email regarding responsibility to notify the [facility] of patient's condition. Patient tells me that he is depressed because he has no family or friends who are close to him. He denies suicidal or homicidal ideations repeatedly. He has no plan and states he does not believe in harming himself or others. He declines one a consult and states that if he feels like he needs to he will follow-up at the [facility]. He has been given a prescription for Wellbutrin and will need to receive refills, he is aware of this. I have discussed smoking cessation with him, he states he is not ready to stop smoking and declines smoking cessation materials or tools. Patient denies chest pain. He has a follow-up appointment with cardiology. He has not established with the team at the [facility], this is in the works. Patient is arranging for transportation back to [place]. He is stable and appropriate for discharge. Time spent discussing smoking cessation with patient: 3 to 10 minutes - Time Spent with Patient Total time spent providing and/or coordinating discharge services: Less than 30 minutes - Constitutional Vitals: Temp Pulse Resp BP Pulse Ox 98.1 F 55 16 115/54 96 01/26/17 15:32 01/26/17 15:32 01/26/17 15:32 01/26/17 15:32 01/26/17 15:32 General appearance: Present: cooperative, A&O X 3, pleasant, no acute distress, answers questions appropriately - Head Head exam: Present: atraumatic, normal inspection, normocephalic - Eye Eye exam: Present: normal appearance, conjuntiva pink - ENT ENT exam: Present: mucous membranes moist, normal exam, normal external ear exam - Neck Neck exam general surgery: Present: normal inspection, supple, trachea midline. Absent: lymphadenopathy - Respiratory Respiratory exam: Present: CTAB. Absent: accessory muscle use, decreased breath sounds, rales, rhonchi, wheezes - Cardiovascular Cardiovascular exam: Present: RRR, +S1, +S2. Absent: diastolic murmur, gallop, rubs, systolic murmur - GI/Abdominal GI/Abdominal exam: Present: normal bowel sounds, soft. Absent: distended, hernia, hepatomegaly, tenderness - Extremities Exam Extremities exam: Present: normal capillary refill, warm, radial pulses palpable and symmetrical. Absent: calf tenderness, cyanotic, pedal edema - Neurological Exam Neurological exam: Present: alert, oriented X3, no focal deficits. Absent: facial droop, speech deficit - Psychiatric Psychiatric exam: Present: flat affect. Absent: homicidal ideation, suicidal ideation - Skin Skin exam: Present: dry, intact, normal color, warm. Absent: rash, urticaria
== END 2017-01-26 18:42 | disposition home or self-care (01) | DRG 313 ==
LOC: EMEROO 18:53 → 3BNU 20:46
PROVIDERS: ADMIT Nurse Practitioner Family; ATTEND Nurse Practitioner Family